=== PATIENT | female | born 1965 | race Caucasian/White ===

== ENCOUNTER 2021-06-29 20:40 | Emergency (ER) | payer MEDICAID ==
--- NOTE | 2021-06-29 21:32 | EDM.PDOC ---
ED HPI GENERAL MEDICAL PROBLEM - General Chief Complaint: Chest Pain Stated Complaint: CHEST PAIN Time Seen by Provider: 06/29/21 21:00 Source of Information: Reports: Patient - History of Present Illness INITIAL COMMENTS - FREE TEXT/NARRATIVE: c/o chest and abd pain pt ate supper of hot ham & cheese, turkey flores, milk, cream corn was watching TV with peers after supper, apparently had midsternal chest discomfort that radiated down to epigastrium and then lateral to each flank, resolved spontaneously, no CP now, no abd pain, no sob, no f/c/d pt from [employer] PMH: mild MR, psychosis, episodic mood disorder, JOSE PSH: denies surgery, no scars on abd meds: PUL: CPAP NUTR: vit D + calcium ENT: cetirizine BEH: olanzapine 15 mg/d, sertraline 100 mg/d NEURO: phenytoin - Related Data Allergies Allergy/AdvReac Type Severity Reaction Status Date / Time No Known Allergies Allergy Verified 06/29/21 21:27 Home Meds: Home Meds .Calcium 600/Vit D 125 Mg 1 tab PO BID 06/29/21 [History] Cetirizine [ZyrTEC] 10 mg PO DAILY 06/29/21 [History] Fluocinonide [Lidex 0.05% Top Soln] 60 ml TOP Q48H 06/29/21 [History] Ketoconazole [Nizoral 2% Shampoo] 1 applic TOP MOWEFR 06/29/21 [History] Multivits w-Fe,Other Min/Lut [Theratrum Complete] 1 each PO DAILY 06/29/21 [History] OLANZapine [Zyprexa] 15 mg PO DAILY 06/29/21 [History] Olopatadine [Pataday 0.2% Ophth Soln] 1 drop EYEBOTH DAILY 06/29/21 [History] Oxybutynin Chloride [Oxybutynin Chloride ER] 15 mg PO BEDTIME 06/29/21 [History] Phenytoin Sodium Extended [Dilantin] 100 mg PO DAILY 06/29/21 [History] Phenytoin Sodium Extended [Dilantin] 200 mg PO BEDTIME 06/29/21 [History] Sertraline HCl [Zoloft] 200 mg PO DAILY 06/29/21 [History] ED ROS GENERAL - Review of Systems Review Of Systems: See Below Constitutional: Reports: No Symptoms HEENT: Reports: No Symptoms Respiratory: Reports: No Symptoms. Denies: Shortness of Breath, Cough Cardiovascular: Reports: Chest Pain Endocrine: Reports: No Symptoms GI/Abdominal: Reports: Abdominal Pain : Reports: No Symptoms Musculoskeletal: Reports: No Symptoms Skin: Reports: No Symptoms Neurological: Reports: No Symptoms Psychiatric: Reports: No Symptoms Hematologic/Lymphatic: Reports: No Symptoms Immunologic: Reports: No Symptoms ED EXAM, GENERAL - Physical Exam Exam: See Below General Appearance: Alert, WD/WN, No Apparent Distress, Other (pleasant, alert, cooperative, good eye contact, no cough observed, nonill, nontoxic, moves easily, follows commands, tells me her birthday) Ears: Hearing Grossly Normal Head: Atraumatic, Normocephalic Neck: Normal Inspection, Supple, Non-Tender, Full Range of Motion. No: Lymphadenopathy (R), Lymphadenopathy (L) Respiratory/Chest: No Respiratory Distress, Lungs Clear, Normal Breath Sounds, No Accessory Muscle Use, Chest Non-Tender, Other (deep breath without splinting) Cardiovascular: Regular Rate, Rhythm, No Edema, No Gallop, No Murmur GI/Abdominal: Normal Bowel Sounds, Soft, Non-Tender, No Organomegaly, No Distention, Other (very soft, mild epigastric tender) Back Exam: Normal Inspection, Full Range of Motion Extremities: Normal Inspection, Normal Range of Motion, No Pedal Edema Neurological: Alert, CN II-XII Intact, Normal Cognition, No Motor/Sensory Deficits Psychiatric: Normal Affect, Normal Mood Skin Exam: Warm, Dry, Intact, Normal Color, No Rash Lymphatic: No Adenopathy #1 Interpretation EKG Date: 06/29/21 Time: 20:42 Rhythm: NSR Rate (Beats/Min): 58 [place]: Normal P-Wave: Present QRS: Normal ST-T: Normal QT: Normal EKG Interpretation Comments: no comparison, wnl, no acute/ST/ischemic changes, unremarkable Course - Vital Signs Last Recorded V/S: Last Vital Signs Temp 36.6 C 06/29/21 20:50 Pulse Resp BP Pulse Ox - Orders/Labs/Meds Orders: Active Orders 24 hr Category Date Time Status Abdomen 2V AP Flat Upright [CR] Stat Exams 06/29/21 21:24 Ordered Chest 2V [CR] Stat Exams 06/29/21 21:07 Ordered C-REACTIVE PROTEIN [CHEM] Stat Lab 06/29/21 21:06 Ordered COMPREHENSIVE METABOLIC PN,CMP [CHEM] Stat Lab 06/29/21 21:06 Ordered LIPASE [CHEM] Stat Lab 06/29/21 21:25 Ordered TROPONIN I [CHEM] Stat Lab 06/29/21 21:06 Ordered URINALYSIS W/MICROSCOPIC [UA W/MICROSCOPIC] [URIN] Stat Lab 06/29/21 21:25 Ordered EKG 12 Lead [EK] Routine Ther 06/29/21 21:06 Ordered Labs: Laboratory Tests 06/29/21 Range/Units 21:14 WBC 4.2 (3.0-10.3) x10-3/uL RBC 3.65 (3.60-5.20) x10(6)uL Hgb 11.3 L (11.4-15.5) g/dL Hct 33.9 L (34.2-48.2) % MCV 92.9 (76.7-100.5) fL MCH 31.1 (23.9-33.9) pg MCHC 33.5 (31.9-34.8) g/dL RDW 12.7 (12.3-16.5) % Plt Count 262 (151-488) x10(3)uL MPV 6.0 L (7.1-12.4) fL Neut % (Auto) 35.3 (30.8-76.2) % Lymph % (Auto) 51.9 (18.4-52.1) % [place] % (Auto) 10.6 (4.4-15.7) % Eos % (Auto) 1.9 (0.6-8.1) % Baso % (Auto) 0.3 (0.2-1.5) % Neut # (Auto) 1.5 (1.5-6.3) x10-3/uL Lymph # (Auto) 2.2 (1.0-4.4) x10-3/uL [place] # (Auto) 0.4 (0.3-1.0) x10-3/uL Eos # (Auto) 0.1 (0.0-0.8) x10-3/uL Baso # (Auto) 0.0 (0.0-0.1) x10-3/uL - Re-Assessments/Exams Free Text/Narrative Re-Assessment/Exam: 06/29/21 21:35 no previous labs 06/29/21 22:14 pt doing well, labs unremarkable, moderate stool throughout stool on abd 2v CxR 2v is neg per prelim ED view symptoms most c/w constipation, cannot exclude GERD altho that seems less likely pt had lived in [place], recently moved to [place] Departure - Departure Time of Disposition: 22:12 Disposition: DC/Tfer to [email or web address] Condition: Good Clinical Impression: Constipation - Discharge Information *PRESCRIPTION DRUG MONITORING PROGRAM REVIEWED*: Not Applicable *COPY OF PRESCRIPTION DRUG MONITORING REPORT IN PATIENT REGINALD: Not Applicable Instructions: Constipation, Adult Forms: ED Department Discharge Additional Instructions: Continue current meds. Drink a 10-ounce bottle of magnesium citrate in the morning and a second bottle 6 hours later. See your PCP in the next several days for further recommendations. Sepsis Event Note (ED) - Evaluation Sepsis Screening Result: No Definite Risk - Focused Exam Vital Signs: Vital Signs Temp 06/29/21 20:50 36.6 C - My Orders Last 24 Hours: My Active Orders 06/29/21 21:06 C-REACTIVE PROTEIN [CHEM] Stat COMPREHENSIVE METABOLIC PN,CMP [CHEM] Stat TROPONIN I [CHEM] Stat EKG 12 Lead [EK] Routine 06/29/21 21:07 Chest 2V [CR] Stat 06/29/21 21:24 Abdomen 2V AP Flat Upright [CR] Stat 06/29/21 21:25 LIPASE [CHEM] Stat URINALYSIS W/MICROSCOPIC [UA W/MICROSCOPIC] [URIN] Stat - Assessment/Plan Last 24 Hours: My Active Orders 06/29/21 21:06 C-REACTIVE PROTEIN [CHEM] Stat COMPREHENSIVE METABOLIC PN,CMP [CHEM] Stat TROPONIN I [CHEM] Stat EKG 12 Lead [EK] Routine 06/29/21 21:07 Chest 2V [CR] Stat 06/29/21 21:24 Abdomen 2V AP Flat Upright [CR] Stat 06/29/21 21:25 LIPASE [CHEM] Stat URINALYSIS W/MICROSCOPIC [UA W/MICROSCOPIC] [URIN] Stat
--- NOTE | 2021-06-30 09:48 | CR ---
INDICATION: Mid sternal chest pain. CHEST, TWO VIEWS: PA and lateral views of the chest were obtained 06/29/21 - no comparisons. There appears to be some mild prominence of the heart which is not quite at the upper limits of normal in size. Overlying EKG leads are noted. Bony structures appear to be intact. A definite active infiltrate or effusion was not identified. There is a linear density in the upper middle lung field laterally on the right which may be fibrotic in nature or due to subsegmental atelectasis. No free air was noted under the hemidiaphragm leaves. IMPRESSION: No acute process. MTDD
--- NOTE | 2021-06-30 09:57 | CR ---
INDICATION: Upper abdominal pain. ABDOMEN TWO-VIEW: Three images of the abdomen in supine and upright projection were obtained 06/29/21 - no comparisons. The pattern of gas and feces is nonspecific with moderate to moderately large amount of stool in the colon. No definite mechanically obstructive process was identified. No gross free air was seen. A mild dextroconcave scoliosis of the lower middle lumbar spine is noted. Slight rotatory component. No organomegaly or mass lesions, or pathologic calcifications were noted. IMPRESSION: Moderately large amount of stool suggested in the colon. This could be functional but should be correlated clinically. No definite mechanically obstructive process was seen. MTDD
== END 2021-06-29 22:30 ==
LOC: FB.ED 20:40
DX: K59.00 Constipation, unspecified (principal); Z79.899 Other long term (current) drug therapy
CPT/HCPCS: 36415; 71046; 74019; 80053; 80185; 81001; 83690; 84443; 84484; 85025; 86140; 93005; 99285-25

== ENCOUNTER 2023-05-26 07:33 | Day surgery (SDC) | payer MEDICARE, MEDICAID ==
[~2023-05-26 07:33] MED LIST: Lactated Ringers 1,000 ML IV SCH; Sodium Chloride 0.9% 10 ML Syringe FLUSH PRN
[2023-05-26] MEDS ORDERED: Lidocaine 2% 5 ML SDV IV ONE (07:34)
[2023-05-26] MEDS ORDERED: Midazolam 1 MG/ML 2 ML SDV IV ONE (07:34)
[2023-05-26] MEDS ORDERED: Propofol 200 MG/20 ML SDV IV ONE (07:34)
== END 2023-05-26 10:18 | disposition home or self-care (01) ==
LOC: FB.SDS 07:33
PROVIDERS: ATTEND Surgery
DX: Z12.11 Encounter for screening for malignant neoplasm of colon (principal); K63.89 Other specified diseases of intestine; E78.5 Hyperlipidemia, unspecified; G40.909 Epilepsy, unspecified, not intractable, without status epilepticus; F70 Mild intellectual disabilities; Z86.010 Personal history of colon polyps; Z79.899 Other long term (current) drug therapy
CPT/HCPCS: 00811; J2250; J2704; J7120

== ENCOUNTER 2023-12-15 20:34 | Emergency (ER) | payer MEDICARE, MEDICAID ==
[2023-12-15] MEDS ORDERED: Sodium Chloride 0.9% 10 ML Syringe FLUSH PRN (21:05)
[2023-12-15 21:17] LABS: BASOPHILS PERCENT AUTO 0.4 % (0.2-1.5); EOSINOPHILS ABSOLUTE AUTO 0.1 x10-3/uL (0.0-0.8); EOSINOPHILS PERCENT AUTO 1.1 % (0.6-8.1); HEMATOCRIT 30.4 % (34.2-48.2); HEMOGLOBIN 10.5 g/dL (11.4-15.5); LYMPHOCYTES ABSOLUTE AUTO 2.4 x10-3/uL (1.0-4.4); LYMPHOCYTES PERCENT AUTO 43.8 % (18.4-52.1); MEAN CORPUSCULAR HEMOGLOBIN 32.1 pg (23.9-33.9); MEAN CORPUSCULAR HGB CONC 34.7 g/dL (31.9-34.8); MEAN CORPUSCULAR VOLUME 92.6 fL (76.7-100.5); MEAN PLATELET VOLUME 6.5 fL (7.1-12.4); MONOCYTES ABSOLUTE AUTO 0.4 x10-3/uL (0.3-1.0); MONOCYTES PERCENT AUTO 8.1 % (4.4-15.7); NEUTROPHILS ABSOLUTE AUTO 2.6 x10-3/uL (1.5-6.3); NEUTROPHILS PERCENT AUTO 46.6 % (30.8-76.2); PLATELET COUNT,PLT 286 x10(3)uL (151-488); RED BLOOD CELL COUNT 3.28 x10(6)uL (3.60-5.20); RED CELL DISTRIBUTION WIDTH 13.8 % (12.3-16.5); WHITE BLOOD CELL COUNT,WBC 5.5 x10-3/uL (3.0-10.3)
[2023-12-15] MEDS ORDERED: levETIRAcetam in NaCl (iso-os) 1,500 MG in Premix Bag 100 BAG IV ONE (21:19)
[2023-12-15] MEDS: levETIRAcetam in NaCl (iso-os) 1,500 MG in Premix Bag 1 BAG IV ONE (21:34)
[2023-12-15 22:25] LABS: BLOOD UREA NITROGEN,BUN 26 mg/dL (7-18); BUN/CREATININE RATIO 28.9 (9-20); CARBON DIOXIDE,CO2 30 mmol/L (21-32); CHLORIDE,CL 100 mmol/L (100-110); CREATININE 0.9 mg/dL (0.55-1.02); EST CRCL DRUG DOSING (CG) 52.67 mL/min; ESTIMATED GFR 75 mL/min (>60); GLUCOSE RANDOM 93 mg/dL (80-116); SODIUM,NA 139 mmol/L (135-145)
[2023-12-15 22:37] LABS: ALANINE AMINOTRANSFERASE,ALT 30 U/L (12-36); ALBUMIN 3.7 g/dL (3.5-5.2); ALKALINE PHOSPHATASE 84 IU/L (56-112); ASPARTATE AMNIOTRANSFERASE,AST 24 IU/L (5-25); BILIRUBIN TOTAL 0.1 mg/dL (0.1-1.3); PROTEIN TOTAL,TP 7.3 g/dL (6.0-8.0)
[2023-12-16 10:17] LABS: PHENYTOIN - TOTAL 16.2
== END 2023-12-15 23:27 | disposition home or self-care (01) ==
LOC: FB.ED 20:34
DX: R56.9 Unspecified convulsions (principal); D64.9 Anemia, unspecified; E03.9 Hypothyroidism, unspecified; K21.9 Gastro-esophageal reflux disease without esophagitis; E66.9 Obesity, unspecified; Z68.32 Body mass index [BMI] 32.0-32.9, adult; Z79.899 Other long term (current) drug therapy
CPT/HCPCS: 36415; 80053; 80185; 80186; 84443; 85025; 96365; 99284; 99284-25; J1953